=== PATIENT | female | born 1985 | race Caucasian/White ===

== ENCOUNTER 2017-02-23 09:06 | Inpatient (IN) | payer OTHER ==
[~2017-02-23] VITALS: Ht 170.2 cm; Wt 81.6 kg
[~2017-02-23 09:06] MED LIST: IBUPROFEN800 MG PO; PRENATAL1 TA2 PO
--- NOTE | 2017-02-23 09:54 | History & Physical ---
General Information and HPI MD Statement: I have seen and personally examined NAZ JARRETT and documented this H&P. The patient is a 31 year old female at 40 weeks gestation who presented with a chief complaint of POST DATES. Source of Information: patient, old records Exam Limitations: no limitations History of Present Illness: PT ADMITTED FOR INDUCTION FOR APPROACHING POST-DATES Allergies/Medications Allergies: Coded Allergies: MDX - Nka - No Known Allergies (NKA - NO KNOWN ALLERGIES) (05/08/13) Home Med list Ibuprofen 800 MG TABLET 800 MG PO Q6P PRN PAIN SCALE 4-6 Compliance With Home Meds: GOOD Past History english drawer History : 4 Para: 3 Last Menstrual Period: 05/18/2016 Estimated Delivery Date: 02/22/2017 Past english drawer History: macrosomia, shoulder dystocia Past Pregnancies Past Pregnancies: 1 Date of Delivery: 2002 Gestational Age: 40 weeks 5/7 days Length of Labor: 72 hours Weight: 4394 g (9 lbs. 11 oz.) Type of Delivery: vaginal Anesthesia: None Place of Delivery: [facility] Complications: Patient had a shoulder dystocia at delivery, no record of the maneuvers utilized by the physician. No physical or neurologic sequelae for the Past Pregnancies: 2 Date of Delivery: 03/28/2015 Gestational Age: 40.2 Weight: 7#2OZ Type of Delivery: vaginal Anesthesia: EPIDURAL Place of Delivery: [place] Complications: NONE Medical History Neurological: NONE EENT: NONE Cardiovascular: NONE Respiratory: NONE Gastrointestinal: NONE Hepatic: NONE Renal: history of renal stones with her prior and history of pyelonephritis in prior Musculoskeletal: NONE Psychiatric: NONE Endocrine: NONE Blood Disorders: NONE Cancer(s): NONE MILLER HEAD/Reproductive: miscarriage Surgical History Pertinent Surgical History: N Past Family/Social History Family History Relations & Conditions if any Relation not specified for: *No pertinent family history Psychosocial History Living Will? unknown Power of Wood Pattern Maker/HCP? unknown Review of Systems Review of Systems Constitutional: Denies: chills, fever. EENTM: Denies: blurred vision, double vision, visual changes. Cardiovascular: Denies: chest pain, orthopena. Respiratory: Denies: short of breath. GI: Denies: diarrhea, nausea, vomiting. Exam & Diagnostic Data Last 24 Hrs of Vital Signs/I&O VSS Obstetric Exam Wgt Gained During : 35# Pelvimetry: TESTED TO 9#11OZ Dilation (cm): 3 Effacement (%): 50 Station: -1 Membranes: intact Fluid: unknown Fundal Height (cm): 39 Multiple Gestation? No Contractions: q10 MIN Infant #1 - FHR Baseline: 144 Category: 1 Estimated Weight: 3700G Presentation: VTX Patient for Induction? Yes Cyr Score Cyr Score Response Value Cervix Position: posterior 0 Cervix Consistency: soft 2 Cervix Effacement: 30-50% 1 Cervix Dilation: 3-4 cm 2 Cervix Station: -1 2 Total 7 Physical Exam General Appearance Alert, Oriented X3, Cooperative, No Acute Distress Skin No Rashes HEENT Atraumatic Neck Supple Cardiovascular Regular Rate Lungs Clear to Auscultation Abdomen Soft Neurological Normal Gait, Normal Speech, Strength at 5/5 X4 Ext, Normal Tone, Sensation Intact Extremities No Edema Vascular Normal Pulses Labs Blood Type & Rh: A POS Antibody Screen: NEG Hct/Hgb & Platelets #1: 40.3/13.4/211 Hct/Hgb & Platelets #2: 37.8/11.9/180 Rubella: IMM VDRL #1: NR VDRL #2: NR HbsAg: NR HIV #1: NR HIV #2 NR 1 Hr P Group B Strep: NEG Initial Ultrasound: 08/19/2016 13W 2D Anatomy Ultrasound: 10/06/2016 NORMAL Ultrasound for EFW: 01/26/2017 75%TILE Genetic Testing: msafp EARLY SCREEN NEGATIVE Assessment/Plan Assessment/Plan: IUP AT 41 WEEKS h/o SHOULDER DYSTOCIA As Ranked By This Provider Problem List: 1. Prior shoulder dystocia at delivery, antepartum Core Measures/Miscellaneous Venous Thromboembolism VTE Risk Factors: / VTE Contraindications: No Contraindications VTE Diagnosis: No Beta Angie Is Beta Angie a Home Med? No Antibiotics Is Patient on Antibiotics? No Attending MD Review Statement Attending Statement Attending MD Statement: examined this patient, discussed with family, discussed w/nursing Attending Assessment/Plan: iup AT 41 WEEKS INDUCABLE CERVIX.
[2017-02-23 10:21] LABS: ABSOLUTE BASOPHIL COUNT 0 /CUMM (0.0-0.2); ABSOLUTE EOSINOPHIL COUNT 0.1 /CUMM (0.0-0.7); ABSOLUTE GRANULOCYTE CT 7.1 /CUMM (1.4-6.5); ABSOLUTE LYMPH COUNT 1.7 /CUMM (1.2-3.4); ABSOLUTE MONOCYTE COUNT 0.6 /CUMM (0.10-0.60); BASOPHIL % 0.4 % (0.0-2.0); EOSINOPHIL % 1.1 % (0-5); GRANULOCYTE % 74.5 % (42.2-75.2); HEMATOCRIT 35.9 % (37-47); MEAN CORPUSCULAR HGB 30.1 PG (27.0-31.0); MEAN CORPUSCULAR HGB CONC 33.7 G/DL (33.0-37.0); MEAN CORPUSCULAR VOLUME 89.4 FL (81.0-99.0); PLATELET COUNT 162 /CUMM (130-400); RBC DISTRIBUTION WIDTH 13.7 % (11.5-14.5); RED BLOOD CELL CT 4.02 /CUMM (4.20-5.40); WHITE BLOOD CELL COUNT 9.6 /CUMM (4.8-10.8)
--- NOTE | 2017-02-23 18:23 | PN- OBGYN ---
Surgical Brief Attending Note Brief Attending Note: pt preogessed quickly to 7 and then 8 cm. She then got her epidural. initially after topping off of the epidural - c/o increased rectal pressure. But some concommtant drop in Mat BP - responded to 2 doses ephedrine. Recheck @ 17:30 pt fully, zero station Due to her persistent discomfort/ rectal pressure - attempted a trial of pushing, starting @ 18:00 with 4 contractions. Epidural relief had kicked in - pt was not effective with pushing. FHR reassuring- baseline 120's w/ accels, occasional early decells - mild. progress in labor- now fully dilated. will allow to labor down. Juan A Nolasco
--- NOTE | 2017-02-23 22:29 | Labor & Delivery Summary ---
Delivery Summary Vaginal Delivery: Vaginal: VERTEX SPONTANEOUS Episiotomy/Lacerations: Episiotomy/Lacerations: none Anesthesia: EPIDURAL Placenta: Placenta: spontanteous, normal, 3 vessel Anesthesia: EPIDURAL Cord PH Value: N/A Baby's Weight: MALE INFANT 7#11 Apgars - 1 Min: 9 Apgars - 5 Min: 9 Additional Comments: PT BECAME FULLY @ 17:30- BUT NO URGE TO PUSH. TWO ATTEMPTS @ PUSHING LACKED ADEQUATE MATERNAL EFFORT SO WERE STOPPED. EPIDURAL WAS EVENTUALLY TURNED OFF. BEGAN PUSHING @ 21:45 THEN LV MALE INFANT @ 22:00. OP POSITION, VERTEX PRESENTATION. THE REST OF THE BABY THEN EASILY DELIVERED. PLACENTA SPONTANEOUSLY DELIVERED INTACT NORMAL CONFIGURATION 3 VC. WT 7#11 oz, APGARS 9/9 INTACT PERINEUM, NO VAGINAL OR CERVICAL LACERATIONS. NO ABNORMAL PP BLEEDING MAX
[2017-02-24 06:28] LABS: ABSOLUTE BASOPHIL COUNT 0 /CUMM (0.0-0.2); ABSOLUTE EOSINOPHIL COUNT 0 /CUMM (0.0-0.7); ABSOLUTE GRANULOCYTE CT 11.7 /CUMM (1.4-6.5); ABSOLUTE LYMPH COUNT 1.7 /CUMM (1.2-3.4); ABSOLUTE MONOCYTE COUNT 0.9 /CUMM (0.10-0.60); BASOPHIL % 0.3 % (0.0-2.0); EOSINOPHIL % 0.3 % (0-5); GRANULOCYTE % 81.4 % (42.2-75.2); MEAN CORPUSCULAR HGB 29.9 PG (27.0-31.0); MEAN CORPUSCULAR HGB CONC 33.6 G/DL (33.0-37.0); MEAN CORPUSCULAR VOLUME 89.1 FL (81.0-99.0); MEAN PLATELET VOLUME 6.9 FL (7.4-10.4); PLATELET COUNT 148 /CUMM (130-400); RBC DISTRIBUTION WIDTH 13.4 % (11.5-14.5); RED BLOOD CELL CT 3.71 /CUMM (4.20-5.40); WHITE BLOOD CELL COUNT 14.4 /CUMM (4.8-10.8)
--- NOTE | 2017-02-24 09:48 | PN- Post Delivery/GYN ---
Subjective Subjective: feeling well Review of Systems Constitutional: Denies: chills, fever. EENTM: Denies: blurred vision, double vision, visual changes. Cardiovascular: Denies: chest pain, palpitations. Respiratory: Denies: cough, short of breath. Gastrointestinal: Denies: diarrhea, nausea, vomiting. Objective Last 24 Hrs of Vital Signs/I&O vss Physical Exam General Appearance Alert, Oriented X3, Cooperative, No Acute Distress Cardiovascular Regular Rate Lungs Clear to Auscultation Abdomen Soft, fundus firm Extremities No Edema Pelvic (FEMALE) lochia sanganous Last 24 Hrs of Labs/Juliano: Laboratory Tests 02/24/17 0610: CBC w Diff NO MAN DIFF REQ, RBC 3.71 L, MCV 89.1, MCH 29.9, RDW 13.4, MPV 6.9 L, Gran % 81.4 H, Lymphocytes % 11.7 L, Monocytes % 6.3, Eosinophils % 0.3, Basophils % 0.3, Absolute Granulocytes 11.7 H, Absolute Lymphocytes 1.7, Absolute Monocytes 0.9 H, Absolute Eosinophils 0, Absolute Basophils 0, PUBS MCHC 33.6 Assessment/Plan Assessment/Plan ppd #1 vss afebrile unable to cirs baby secondary to temp and feeding issues Problem List: 1. Prior shoulder dystocia at delivery, antepartum 2. Attending MD Review Statement Attending Statement Attending MD Statement: examined this patient, discussed with family, discussed with nursing
[2017-02-25] MEDS ORDERED: IBUPROFEN800 M1 PO (10:57)
--- NOTE | 2017-02-25 11:24 | PN- Post Delivery/GYN ---
Subjective Subjective: DOING WELL - READY FOR BABY'S CIRC AND THEN DISCHARGE HOME Review of Systems: NEG FOR CARDIAC, PULMONARY GI COMPLAINTS Objective Last 24 Hrs of Vital Signs/I&O AFEBRILE VSS Physical Exam: . Physical Exam General Appearance Alert, Oriented X3, Cooperative, No Acute Distress Skin No Significant Lesion Cardiovascular Regular Rate Lungs Normal Air Movement Abdomen Normal Bowel Sounds, Soft, No Tenderness, No Hepatospenomegaly, UTERUS MIDLINE FIRM NONTENDER 2 FB BELOW UMBILICUS Neurological Normal Gait, Normal Speech Extremities No Tenderness/Swelling Reproductive (FEMALE) Normal female genitalia, AVGE LOCHIA Current Medications: Current Medications Sig/Jc Start time Last Medication Dose Route Stop Time Status Admin Acetaminophen 650 MG Q4P PRN 02/23 2230 AC PO Butorphanol Tartrate 1 MG Q4P PRN 02/23 1000 DC 02/23 IV 1640 Butorphanol Tartrate 1 MG Q4P PRN 02/23 1000 DC 02/23 IM 1643 Butorphanol Tartrate 2 MG Q4P PRN 02/23 1000 DC IV Butorphanol Tartrate 2 MG Q4P PRN 02/23 1000 DC IM Docusate Sodium 100 MG BID PRN 02/23 2230 AC PO Hydroxyzine HCl 100 MG AT BEDTIME NEED.. 02/23 2230 AC PO Ibuprofen 800 MG .STK-MED ONE 02/24 1857 DC PO 02/24 1858 Ibuprofen 800 MG Q6P PRN 02/23 2230 AC 02/25 PO 0601 Lactated Ringer's 1,000 ML Q8H 02/23 1015 DC 02/23 IV 1741 Magnesium Hydroxide 30 ML DAILY PRN 02/23 2230 AC PO Methylergonovine 200 MCG Q4P PRN 02/23 2230 AC Maleate PO Oxycodone/ 1 TAB Q3P PRN 02/23 2230 AC Acetaminophen PO Oxytocin 30 UNITS PER PROTOCL 02/23 1000 DC 02/23 Lactated Ringer's 500 ML IV 1028 Assessment/Plan Assessment/Plan DOING WELL - READY FOR DISCAHREG HOME AFTER 1ST DIAPER CHANGE POST CIRCUMCISION PLAN DISCHARGE HOME Problem List: 1. 2. Term of male Attending Review Statement Attending Statement Attending MD Statement: examined this patient, discussed with family, reviewed EMR data (avail), discussed with nursing Attending Assessment/Plan: Juan A DAWSON MD
== END 2017-02-25 13:20 | DRG 775 ==
LOC: GNO 09:06
PROVIDERS: Obstetrics & Gynecology; ADMIT Obstetrics & Gynecology
PROC: 10E0XZZ Delivery of Products of Conception, External Approach (ICD-10-PCS; principal; 2017-02-23)
DX: O64.0XX0 Obstructed labor due to incomplete rotation of fetal head, not applicable or unspecified (principal); O75.89 Other specified complications of labor and delivery; Z3A.40 40 weeks gestation of pregnancy; Z37.0 Single live birth
CPT/HCPCS: GNOP; GNOS; 81001; J1885; J2210; J2310; J2405; J7120